=== PATIENT | male | born 1995 | race Caucasian/White ===

== ENCOUNTER 2019-12-13 09:33 | Emergency (ER) | payer OTHER, SELFPAY ==
--- NOTE | 2019-12-13 09:52 | DI.RAD.S_ITS ---
PROCEDURE: XR FINGER LT MIN 2V INDICATIONS: fall w/ injury TECHNIQUE: AP hand, 2 views of the left thumb was acquired. COMPARISON: None. FINDINGS: Bones: No fractures or dislocations. No suspicious bony lesions. Soft tissues: No suspicious soft tissue calcifications. IMPRESSION: No acute osseous abnormality of the left thumb. Dictated by: Joseph Holley M.D. on 12/13/2019 at 9:36 Approved by: Joseph Holley M.D. on 12/13/2019 at 10:08
[2019-12-13 09:53] VITALS: BP 127/74; PULSE 75; RESP 17; TEMP 36.8; O2SAT 97; BMI 24.0
--- NOTE | 2019-12-13 10:09 | PC.NURSE ---
Fully a/o x 4, Neuro intact w/ full CSM. NSR on monitor w/o ectopy.
[2019-12-13 10:45] VITALS: BP 113/58; PULSE 78; RESP 18; O2SAT 99
--- NOTE | 2019-12-13 10:46 | ED.SYNCOPE ---
HPI - Syncope General Chief Complaint: Syncope Stated Complaint: headache/floaty/injury to face xtoday Time Seen by Provider: 12/13/19 10:29 Source: patient Mode of arrival: Family Vehicle Limitations: no limitations History of Present Illness HPI narrative: This is a pleasant 23-year-old male who comes to the emergency department with complaint of facial injury, thumb injury as well as possible syncopal episode. Patient was at work when he was pulling some carts backwards and struck his elbow on a pull very hard, he states the cart also pushed into the webbing of his thumb and he has pain sort of in that webbing area of his left hand. Patient states that he felt a ?buzzing? down his arm and up to his shoulder. When this occurred he states that he passed out for a couple seconds at the most. He states he could still hear people talking when happened. He did hit his face when this happened. Patient states he has some bruising and pain over the bridge of his nose he did have a little bit of bleeding. He also cut his lip and he has some pain of his upper left front tooth. Patient states that the episode was maybe a couple seconds. It was witnessed by another individual who confirmed this for him. He denies any other symptoms currently besides some pain in his left thumb in the webbing area he states flexion-extension feels okay. He does not any pain in his elbow and denies any neck, back pain no nausea vomiting, no shortness of breath or chest pain. No loss of bowel or bladder control. He did not have any seizure-like activity. He denies any other medical issues. He has had knee replacement surgery in the past. He is not on any medications currently. He has had 1 or 2 prior syncopal episodes when he states he was not eating food for 12-24 hour periods and smoking a lot of marijuana. He does occasionally smoke but just on the weekends. Denies any current tobacco and no recent alcohol and only and just occasionally. Related Data Previous Rx's Medication Instructions Recorded mupirocin 2 % topical ointment 1 applictn TOP TID #15 gram 02/17/18 Allergies Allergy/AdvReac Type Severity Reaction Status Date / Time No Known Drug Allergies Allergy Verified 12/13/19 09:59 Review of Systems Review of Systems ROS Unobtainable: All systems reviewed & are unremarkable except as noted in HPI and below Patient History Surgical History Status post repair of hydrocele Social History Smoking Status: Current some day smoker Smoking Status: Current some day smoker alcohol intake frequency: 0-2 drinks per day Substance Use Type: marijuana Exam Narrative Exam Narrative: GEN: Patient appears in mild distress. HEAD: No evidence of trauma, no raccoon/Mcghee sign. NECK: Nontender, painless range of motion, trachea midline Negative Nexus criteria, there is no midline tenderness, distracting injury, altered mental status, neuro deficit, recent EtOH. EYES: PERRLA, EOMI ENT: External inspection normal except for mild ecchymosis over the upper bridge of the nose, trachea is midline, TM's are normal no hemotypanum, Nares jamie mild dried blood on right, no septal hematoma, no dental or oral injury other than superficial laceration of the lower lip on the inner left, there is no puncture or through and through laceration and no involvement of the vermilion area is not gapped, patient has some mild tenderness of the left right front tooth, no motion with palpation, airway is normal and with normal occlusion, No bony tenderness RESP: Chest is nontender and has symmetric movement, no ecchymosis, breath sounds are normal no crackles, wheezes or rales CVS: Heart sounds are normal, no murmur noted, No JVD. ABG/GI: Nontender, soft, normal bowel sounds, no distention, no organomegaly. NEURO: Oriented AOx3, neuro is grossly intact, sensation and motor is normal all 4 extremities moving, cranial nerves II through XII are intact, GCS is 15 PSYCH: Normal mood and affect SKIN: Intact, warm and dry, no crepitus and without decubitus BACK: No CVA tenderness, no vertebral tenderness, no step-off's, no crepitus EXT: Atraumatic, patient has mild pain over webbing of left thumb, no other bony tenderness, full range of motion, hips are nontender, no pedal edema, normal color and temperature, normal range of motion of extremities with normal tendon exam, 2+ pulses in all four extremities Initial Vital Signs Initial Vital Signs: Vital Signs Temperature 98.3 F 12/13/19 09:53 Pulse Rate 75 12/13/19 09:53 Respiratory Rate 17 12/13/19 09:53 Blood Pressure 127/74 12/13/19 09:53 Pulse Oximetry 97 12/13/19 09:53 Course Orders Ordered: ED Orders 12/13/19 09:52 XR finger LT min 2V Stat 12/13/19 09:53 EKG-12 Lead Stat Vital Signs Vital signs: Vital Signs - 8 hr 12/13/19 09:53 12/13/19 10:45 Temperature 98.3 F Pulse Rate 75 78 Respiratory Rate 17 18 Blood Pressure 127/74 Blood Pressure [Left Arm] 113/58 L Pulse Oximetry 97 99 MDM - Syncope Imaging Data hand xray left: Radiologist's Impression: [address] [address] XRay Report Signed Patient: Thom Whitten DMR#: [id number] : 1995Acct:[id number] Age/Sex: 23 / MDate of Service: 12/13/19 Loc: ED Accession Number: [id number] Procedure: XR finger LT min 2V Ordering Provider: Julio Segovia MD PROCEDURE: XR FINGER LT MIN 2V INDICATIONS: fall w/ injury TECHNIQUE: AP hand, 2 views of the left thumb was acquired. COMPARISON: None. FINDINGS: Bones: No fractures or dislocations. No suspicious bony lesions. Soft tissues: No suspicious soft tissue calcifications. IMPRESSION: No acute osseous abnormality of the left thumb. Dictated by: Joseph Holley M.D. on 12/13/2019 at 9:36 Approved by: Joseph Holley M.D. on 12/13/2019 at 10:08 ECG Data Attestation: I personally reviewed and interpreted this ECG as follows: Prior ECG tracings: available for review Interpretation: Sinus rhythm rate of 71 IA 132 QRS of [address] elevation depression noted. Patient has prior from 09/13/2014 which appears the same. [facility] Narrative Medical decision making narrative: Patient has a small contusion on the nose and superficial lip laceration with no obvious dental injury although he has some tenderness. Was discussed that he would benefit from follow-up with the dentist if he continues to have pain in the tooth or any motion is noted. Lip laceration should heal without much intervention. We discussed potentially could have a nasal bone fracture his nose appears midline without any deformity to myself but patient suspect there is some mild. We discussed he can follow up with ENT if he continues to feel this way in the next week or 2 of swelling is improved. Thumb has full range of motion, x-ray is negative with no acute bony tenderness. I suspect patient's episode was vasovagal in nature. His EKG shows a sinus rhythm. Patient has not had any further symptoms. Discussed return precautions and patient feels comfortable with the plan. Discharge Plan Departure Patient Disposition: Home Clinical Impression: Contusion of nose, Syncope, vasovagal, Injury of left thumb, Laceration of lip Discharge Date/Time: 12/13/19 11:17 Instructions: DI for Syncope in Adults (Fainting), DI for Nose Fracture Activity Restrictions/Additional Instructions: Follow-up with ENT in the next 1-2 weeks if you are concerned about any deformity or changes to your nose. I would also follow up with a dentist if you notice any willing or increasing pain in your teeth. I would recommend continuing with a soft diet until your dental pain has resolved or you have followed up with a dentist for continuing pain or movement of teeth and until your lip has fully healed. You may take Tylenol and/or ibuprofen as needed for pain. Elevated affected body part to decrease swelling. OK to use ice pack on the affected body part. Use for 15-20 minutes each time, for 5-6x per day. If you develop worsening pain, numbness, tingling, discoloration of the affected body part, either see your doctor for an urgent re-assessment, or return to the Emergency Department. Return to the Emergency Department for any new or worsening symptoms. Any recurrent lightheadedness, passing out, severe headaches, persistent bleeding from her nose new chest pain, shortness of breath, persistent vomiting or other new or concerning symptoms. Prescriptions: No Action mupirocin 2 % ointment 1 applictn TOP TID Qty: 15 RF: 0 Referrals: Gilbert Hooker MD [Physician] -
== END 2019-12-13 11:17 | disposition home or self-care (01) ==
PROVIDERS: Emergency Provider Emergency Medicine; Family Provider Family Medicine
DX: S00.33XA Contusion of nose, initial encounter (principal); S69.92XA Unspecified injury of left wrist, hand and finger(s), initial encounter; R55 Syncope and collapse; Y99.0 Civilian activity done for income or pay
CPT/HCPCS: 73140; 93005; 99283; 99284

== ENCOUNTER → 2024-10-02 15:15 | Outpatient (ROUT) | payer OTHER, SELFPAY ==
[2024-10-02 15:22] LABS: Add Manual Diff / Slide Review NO; Basophils Absolute Auto 0 /uL (0-100); Basophils Percent Auto 0.6 % (0-2); Eosinophils Absolute Auto 100 /uL (0-450); Eosinophils Percent Auto 2.1 % (2-4); Hematocrit 40.4 % (41-53); Hemoglobin 14.2 g/dL (13.5-17.5); Lymphocytes Absolute Auto 1900 /uL (1100-4500); Lymphocytes Percent Auto 29.8 % (25-40); Mean Corpuscular HGB Conc 35.2 % (30-36); Mean Corpuscular Hemoglobin 31.3 PG (26-34); Mean Corpuscular Volume 88.8 fL (80-100); Monocytes Absolute Auto 400 /uL (0-900); Neutrophils Absolute Auto 3900 /uL (1500-7000); Neutrophils Percent Auto 60.5 % (50-75); Platelet Count 246 X10^3/uL (150-400); Red Blood Cell Count 4.54 X10^6/uL (4.5-5.9); Red Cell Distribution Width 13.3 % (11.6-14.8); White Blood Cell Count 6.4 X10^3/uL (4.5-11.0)
[2024-10-02 15:40] LABS: HEMOLYSIS < 15 (0-50); Iron 119 ug/dL (49-181)
[2024-10-02 15:42] LABS: Alanine Aminotransferase 30 IU/L (<50); Albumin 4.9 g/dL (3.5-5.0); Albumin Globulin Ratio 1.9 (1.0-2.8); Alkaline Phosphatase 63 U/L (38-126); Aspartate Aminotransferase 36 IU/L (17-59); BUN Creatinine Ratio 14.3 (6-22); Bilirubin Total 0.4 mg/dL (0.2-1.3); Blood Urea Nitrogen 14 mg/dL (9-20); Calcium 9.2 mg/dL (8.4-10.2); Carbon Dioxide 25 mmol/L (22-32); Chloride 102 mmol/L (98-107); Cholesterol 225 mg/dL (140-199); Estimated Glomerular Filt Rate > 60 mL/min (>60); Globulin 2.6 g/dL (1.7-4.1); Glucose 77 mg/dL (70-100); HDL Cholesterol 61 mg/dL (40-60); HEMOLYSIS < 15 (0-50); LDL Cholesterol Calculated 144 mg/dL (<100); Potassium 4.2 mmol/L (3.4-5.1); Sodium 139 mmol/L (137-145); Total Protein 7.5 g/dL (6.3-8.2); Triglycerides 102 mg/dL (35-150)
[2024-10-02 15:51] LABS: Percent Iron Saturation 38 % (20-50); Total Iron Binding Capacity 313 ug/dL (261-462); Transferrin 301 mg/dL (206-381)
[2024-10-02 16:11] LABS: Thyroid Stimulating Hormone 1.85 uIU/mL (0.47-4.68)
[2024-10-02 16:14] LABS: Testosterone 466 ng/dL (132-813)
== END ==
PROVIDERS: Family Provider Family Medicine; Visit Provider Family Medicine
DX: Z00.00 Encounter for general adult medical examination without abnormal findings (principal); I86.1 Scrotal varices; R53.83 Other fatigue; E55.9 Vitamin D deficiency, unspecified; E34.9 Endocrine disorder, unspecified
CPT/HCPCS: 80053; 80061; 82306; 83540; 83550; 84403; 84443; 85025

== ENCOUNTER 2025-07-15 01:21 | Emergency (ER) | payer OTHER, SELFPAY ==
[2025-07-15 01:30] VITALS: BP 128/80; PULSE 80; RESP 16; TEMP 36.3; O2SAT 97; BMI 29.9
--- NOTE | 2025-07-15 02:27 | ED.EYEPROB ---
HPI - Eye Problem General Chief complaint: Eye Problems Stated complaint: Lt eye irritation, foreign object in eye Time Seen by Provider: 07/15/25 01:27 Source: patient Mode of arrival: Ambulatory History of Present Illness HPI Narrative: 29-year-old male wears reading glasses, works at [employer], finishes shift without any obvious eye complaints, while at home had 2 hours duration now of left eye irritation. No injury or foreign body known. No welding activities. Wears corrective lenses, no damage to normal eyewear. Related Data Previous Rx's ?Medication ?Instructions ?Recorded mupirocin 2 % topical ointment 1 applictn topical TID rash #15 02/17/18 grams Allergies Allergy/AdvReac Type Severity Reaction Status Date / Time No Known Drug Allergies Allergy Verified 07/15/25 01:30 Patient History Surgical History Status post repair of hydrocele tobacco type: smokeless tobacco alcohol intake frequency: 0-2 drinks per day Exam Narrative Exam Narrative: GENERAL: Well-developed patient, in mild distress. HEAD: Atraumatic. Normocephalic. EYES: Injected sclerae bilateral, visible foreign body at 4 o'clock position right limbus corneal/scleral junction. ENT: No obvious periorbital swelling mother facial edema. NECK: Trachea midline. Non tender CARDIOVASCULAR: Regular rate and rhythm without murmurs, gallops, or rubs. RESPIRATORY: Clear to auscultation. Breath sounds equal bilaterally. No wheezes, rales, or rhonchi. GASTROINTESTINAL: Abdomen soft, non-tender, nondistended. EXTREMITIES: No edema or joint tenderness. BACK: Nontender without deformity or crepitance. No flank tenderness. NEURO: AOx3. Motor functions grossly nonfocal. SKIN: No rash or erythema of visible areas Initial Vital Signs Initial Vital Signs: Vital Signs Temperature 97.3 F L 07/15/25 01:30 Pulse Rate 80 07/15/25 01:30 Respiratory Rate 16 07/15/25 01:30 Blood Pressure 128/80 07/15/25 01:30 Pulse Oximetry 97 07/15/25 01:30 Oxygen Delivery Method Room Air 07/15/25 01:30 Course Orders Ordered: Discontinued Medications Erythromycin (Erythromycin Ophth 1 Gm Oint) 1 applic EYE-BOTH NOW ONE Stop: 07/15/25 02:41 Last Admin: 07/15/25 02:58 Dose: 1 applic Documented By: AB Fluorescein Sodium (Fluorescein 1 Mg Strip) 1 mg EYE-LEFT NOW ONE Stop: 07/15/25 02:27 Last Admin: 07/15/25 02:29 Dose: 1 mg Documented By: AB Proparacaine HCl (Proparacaine 0.5% Ophth Skye) 1 drops EYE-LEFT NOW ONE Stop: 07/15/25 02:27 Last Admin: 07/15/25 02:30 Dose: 1 drop Documented By: AB Vital Signs Vital signs: Vital Signs - 8 hr 07/15/25 01:30 07/15/25 03:08 Temperature 97.3 F L Pulse Rate 80 69 Respiratory Rate 16 16 Blood Pressure 128/80 114/64 Pulse Oximetry 97 98 Oxygen Delivery Method Room Air Room Air MDM - Eye Problem MDM Narrative Medical decision making narrative: [employer] using eye protection equipment, foreign body sensation 2 hours after return home from work. Small black maria esther foreign body visible with the naked eye and better visualized with Wood's lamp magnification left eye, 4 o'clock position limbus junction sclerae/cornea. Proparacaine applied to eye, fluorescein staining, no other foreign bodies seen, no wielding pattern or other corneal abrasion changes. Phone tip swab removal of some foreign body, some residual crater versus residual foreign body, irrigated by nursing. Antibiotic ointment erythromycin given. Advised further evaluation eye clinic tomorrow Wednesday morning with doctors Mingo or Owen, clinic contact information provided. Discharged home, improved. Follow up with eye clinic, return precautions discussed. Discharge Plan Departure Patient Disposition: Home Clinical Impression: Foreign body of left eye, Conjunctivitis Activity Restrictions/Additional Instructions: [employer] at area [employer], with protective goggles being worn. Left eye irritation and foreign body sensation. Eyes examined with Wood's lamp magnification after topical application of numbing drops and fluorescein staining. There is a visible small punctate foreign body in the left scleral limbal junction of the left eye and cornea. Pressure removal of a foreign body with some swab tip. Second attempt no further foreign body removed, there is a small amount of dark speck like coloration that might be the residual crater of foreign body, or perhaps some additional retained embedded foreign body material. Trial of eye irrigation. Topical antibiotics with the erythromycin to the affected left eye. There is also some redness to the right eye. It is possible to also have flash ultraviolet light exposure to both eyes and irritation conjunctivitis from such an injury. Consider antibiotics to both eyes, however at least through the left eye where there is foreign body and possible retained material. Further evaluation with an eye clinic advised on Wednesday when available, present to the eye clinic at 8 in the morning when they are open for emergency eye Care follow up. Take Tylenol and or Motrin as needed for pain control. Contact information provided for eye clinic, doctors Mingo and owen in that clinic, hopefully they can further evaluate your eye and see if there was any residual material that needs to be removed. Prescriptions: No Action mupirocin 2 % ointment 1 applictn TOP TID Qty: 15 0RF Referrals: Chantel Weaver MD [Physician, Ophthalmology] Gurmeet Aguila MD [Physician, Ophthalmology] Stand Alone Forms: Patient Portal/API, Work Release Note
[2025-07-15] MEDS: FLUORESCEIN 1 MG STRIP EYE-LEFT (02:29)
[2025-07-15] MEDS: PROPARACAINE 0.5% OPHTH SOL 1 DROPS EYE-LEFT (02:30)
[2025-07-15] MEDS: ERYTHROMYCIN OPHTH 1 GM OINT 1 APPLIC EYE-BOTH (02:58)
[2025-07-15 03:08] VITALS: BP 114/64; PULSE 69; RESP 16; O2SAT 98
== END 2025-07-15 03:11 | disposition home or self-care (01) ==
PROVIDERS: Emergency Provider Emergency Medicine; Family Provider Family Medicine
DX: T15.12XA Foreign body in conjunctival sac, left eye, initial encounter (principal); W44.9XXA Unspecified foreign body entering into or through a natural orifice, initial encounter
CPT/HCPCS: 65205; 99282